=== PATIENT | male | born 1960 | race African-American/Black ===

== ENCOUNTER 2017-05-19 11:11 | Emergency (ER) | payer MEDICAID ==
[~2017-05-19] VITALS: Ht 177.8 cm; Wt 80.0 kg
[2017-05-19] MEDS ORDERED: IBUPROFEN 800MG TABLET PO ONE (13:30)
[2017-05-19] MEDS ORDERED: OMEPRAZOLE 20MG CAPSULE EXTENDED RELEASE PO ONE (13:30)
[2017-05-19 13:46] VITALS: BP 161/99
== END 2017-05-19 13:47 | disposition home or self-care (01) ==
LOC: ER 11:22
DX: M25.511 Pain in right shoulder (principal); Z88.5 Allergy status to narcotic agent
CPT/HCPCS: 99283